=== PATIENT | female | born 1935 | race Caucasian/White ===

== ENCOUNTER 2016-09-11 15:11 | Emergency (ER) | payer OTHER ==
[~2016-09-11 15:11] MED LIST: ANTIVERT PO; ASPIRIN PO; ATENOLOL PO; ATIVAN PO; LIPITOR PO
[2016-09-11 15:40] LABS: URINE SOURCE CLEAN CATCH
[2016-09-11 15:52] LABS: URINE APPEARANCE CLEAR; URINE BLOOD NEG (NEG); URINE COLOR DK YELLOW; URINE GLUCOSE NEG (NEG); URINE KETONE NEG (NEG); URINE LEUKOCYTE ESTERASE 2+ (NEG); URINE NITRATE POS (NEG); URINE PROTEIN NEG (NEG); URINE SPECIFIC GRAVITY 1.012 (1.003-1.035)
[2016-09-11 15:55] LABS: CULTURE INDICATED? YES; U HYALINE CASTS AUWI 0-2 /[LPF]; URINE BACTERIA AUWI NEG (NEGATIVE); URINE SQUAMOUS EPITHELIAL CELL FEW /[HPF]; UWBCS1 AUWI 25-50 (0-5)
[2016-09-11 16:06] LABS: URINE BILIRUBIN NEG (NEG)
== END 2016-09-11 18:11 | disposition home or self-care (01) ==
LOC: CED 15:11
PROVIDERS: Nurse Practitioner
DX: N39.0 Urinary tract infection, site not specified (principal)
CPT/HCPCS: 81003; 87086; 99282

== ENCOUNTER → 2016-09-30 | Outpatient (CLI) | payer OTHER ==
--- NOTE | ~2016-09-30 | MY11 ---
[facility] A Service of [facility] RADIOLOGY TEXT RESULTS PATIENT: ALISHA MICHAEL LOCATION: [facility] : 39 UNIT #: [id number] AGE: [address]: Mercy Scruggs MD SEX: F ORDER DR: [id number] [facility]. [place], [place] [address] [id number] O MR#: [id number] Acc #: [id number] NAME: ALISHA MICHAEL : 1935 SEX: F STUDY DATE/TIME: 09/30/2016 10:17 UNIT: [facility] ROOM: STUDY DESCRIPTION: MY Mammogram Screening Dig Ilya Attending Physician: Mercy Scruggs M.D. Ordering Physician: Mercy Scruggs M.D. Primary Care Physician: Mercy Scruggs M.D. MEDICAL IMAGING REPORT This report is preliminary unless electronic signature is present EXAM Digital screening mammogram 09/30/2016. HISTORY A 81-year-old woman positive family history, mother age 80. Annual screening. COMPARISON STUDIES Mammograms date 02/25/06 with most recent 07/31/2015 FINDINGS Digital imaging of each breast was completed utilizing standard craniocaudal and mediolateral-oblique projections. Review and interpretation of digital mammograms include a second review in conjunction with FDA-approved CAD device. There is an overall increase in the parenchymal presentation bilaterally with a generalized fibronodular pattern in each breast. There are no breast masses and I see no asymmetry in the parenchymal presentation. There are no suspicious microcalcifications and I see no architectural disturbance. IMPRESSION Benign mammogram. One-year followup recommended. Patients over the age of 40 are entered into a reminder system with target due date for the next mammogram. A result letter will also be sent to the patient. BIRADS: 2 Benign finding Dictated by... [facility] A Service [facility] RADIOLOGY TEXT RESULTS PATIENT: ALISHA MICHAEL LOCATION: [facility] : 39 UNIT #: [id number] AGE: [address]: Mercy Scruggs MD SEX: F ORDER DR: Donnell Alicea M.D. THIS IS AN ELECTRONICALLY VERIFIED REPORT Donnell Alicea M.D. at 09/30/2016 12:57 PM ALICIA/tiara TD: 09/30/2016 11:48 JOB #: [id number] MEDICAL IMAGING REPORT Page 1 of 1 COPY
== END | disposition home or self-care (01) ==
LOC: CWCC 09:49
DX: Z12.31 Encounter for screening mammogram for malignant neoplasm of breast (principal); Z80.3 Family history of malignant neoplasm of breast
CPT/HCPCS: G0202